=== PATIENT | female | born 1945 | race Two or more races ===

== ENCOUNTER 2018-09-08 14:20 | Emergency (ER) | payer SELFPAY ==
[~2018-09-08] VITALS: Ht 157.5 cm; Wt 103.4 kg
--- NOTE | 2018-09-08 14:42 | NUR ---
PATIENT LEFT WITHOUT DISCHARGE INSTRUCTIONS.
--- NOTE | 2018-09-08 14:46 | NUR ---
PATIENT AMBULATED INDEPENDENTLY IN STEADY GAIT. PATIENT FOUND OUTSIDE IN THE PARKING LOT, SEEN AND ASSESSED BY DR. ELY. ATTEMPTED TO GIVE DISCHARGE INSTRUCTIONS, PATIENT REFUSED INSTRUCTIONS OR TO SIGN ANY PAPERWORKS. PATIENT LEFT IN STABLE CONDITION PICKED UP BY SON.
[2018-09-08 14:49] VITALS: BP 158/78
== END 2018-09-08 14:50 | disposition home or self-care (01) ==
LOC: ER 14:22
DX: M25.561 Pain in right knee (principal); M25.562 Pain in left knee; M25.571 Pain in right ankle and joints of right foot; M25.572 Pain in left ankle and joints of left foot; I10 Essential (primary) hypertension; W01.0XXA Fall on same level from slipping, tripping and stumbling without subsequent striking against object, initial encounter; Y93.89 Activity, other specified; Y92.89 Other specified places as the place of occurrence of the external cause; Y99.8 Other external cause status